=== PATIENT | female | born 1965 | race Caucasian/White ===

== ENCOUNTER → 2018-05-25 16:30 | Emergency (ER) | payer OTHER | END | disposition left against medical advice (07) | LOC: ED 16:30 | DX: S61.411A Laceration without foreign body of right hand, initial encounter (principal); X58.XXXA Exposure to other specified factors, initial encounter; Y92.9 Unspecified place or not applicable; Z53.21 Procedure and treatment not carried out due to patient leaving prior to being seen by health care provider ==